=== PATIENT | male | born 1950 | race Two or more races ===

== ENCOUNTER 2018-08-11 12:32 | Emergency (ER) | payer MEDICARE ==
[~2018-08-11] VITALS: Ht 167.6 cm; Wt 127.0 kg
--- NOTE | 2018-08-11 12:40 | NUR ---
PT ROHINI FROM HOME FOR S/P GLF, PT AAOX4, PT ON MONITOR, VSS, PENDING MD HOU
[2018-08-11 12:59] LABS: BASOPHILS # (AUTO) 0.1 /CMM (0.0-0.2); BASOPHILS % (AUTO) 0.5 % (0.0-2.0); EOSINOPHILS % (AUTO) 1.4 % (0.0-6.0); HEMATOCRIT 30 % (39-51); HEMOGLOBIN 9.8 g/dL (13.5-17.5); LYMPHOCYTES # (AUTO) 0.7 /CMM (0.8-4.8); LYMPHOCYTES % (AUTO) 5.6 % (20.0-44.0); MEAN CORPUSCULAR HGB CONC 32 g/dl (31.0-36.0); MEAN CORPUSCULAR VOLUME 95 fL (80-96); MONOCYTES # (AUTO) 0.7 /CMM (0.1-1.30); MONOCYTES % (AUTO) 5.4 % (2.0-12.0); NEUTROPHILS # (AUTO) 11.2 /CMM (1.8-8.9); NEUTROPHILS % (AUTO) 87.1 % (43.0-81.0); PLATELET COUNT (AUTO) 206 /CMM (150-450); RED BLOOD CELL COUNT(AUTO) 3.19 MIL/uL (4.5-6.0); WHITE BLOOD COUNT (AUTO) 12.8 K/uL (4.3-11.0)
[2018-08-11 13:08] LABS: CALCIUM, SERUM 8.5 mg/dL (8.5-10.1); CREATININE 5.3 mg/dL (0.6-1.3); POTASSIUM 5.3 mmol/L (3.5-5.1)
--- NOTE | 2018-08-11 14:00 | NUR ---
Patient discharged to home in stable condition. Written and verbal after care instructions given. Patient verbalizes understanding of instruction. Arranged taxi to home. Pt left in stable condition.
[2018-08-11 14:04] VITALS: BP 119/60
[2018-08-11] MEDS ORDERED: FLUT16SP BNOSTRILS (15:51)
[2018-08-11] MEDS ORDERED: METO25TA20 PO (15:51)
[2018-08-11] MEDS ORDERED: SULF5DRO RIGHTEYE (15:51)
[2018-08-11] MEDS ORDERED: INSU100I14 SQ (15:51)
[2018-08-11] MEDS ORDERED: ALBU18HF2 IH (15:51)
[2018-08-11] MEDS ORDERED: ATOR80TA PO (15:51)
[2018-08-11] MEDS ORDERED: SEVE800T8 PO (15:51)
[2018-08-11] MEDS ORDERED: BENZ-38 PO (15:51)
[2018-08-11] MEDS ORDERED: INSU100V7 SQ (15:51)
[2018-08-11] MEDS ORDERED: DULA1.5P SQ (15:51)
[2018-08-11] MEDS ORDERED: HYDR-4384 PO (15:51)
[2018-08-11] MEDS ORDERED: BUME2TAB3 PO (15:51)
[2018-08-11] MEDS ORDERED: DOCU100C36 PO (15:51)
[2018-08-11] MEDS ORDERED: BUDE10.2 IH (15:51)
[2018-08-11] MEDS ORDERED: TAMS-12 PO (15:51)
[2018-08-11] MEDS ORDERED: ALLO300T2 PO (15:51)
[2018-08-11] MEDS ORDERED: ASPI-1169 PO (15:51)
[2018-08-11] MEDS ORDERED: CLOP75TA15 PO (15:51)
[2018-08-11] MEDS ORDERED: FOLI0.8T23 PO (15:51)
[2018-08-11] MEDS ORDERED: BLOO-697 MC (15:56)
== END 2018-08-11 14:08 | disposition home or self-care (01) ==
LOC: ER 12:33
DX: E11.22 Type 2 diabetes mellitus with diabetic chronic kidney disease (principal); I12.9 Hypertensive chronic kidney disease with stage 1 through stage 4 chronic kidney disease, or unspecified chronic kidney disease; N18.9 Chronic kidney disease, unspecified; Z95.2 Presence of prosthetic heart valve; Z99.2 Dependence on renal dialysis
CPT/HCPCS: 36415; 71045-TC; 80048-TC; 84484-TC; 85025-TC

== ENCOUNTER 2018-08-11 14:45 | Inpatient (IN) | payer MEDICARE ==
[~2018-08-11] VITALS: Ht 162.6 cm; Wt 129.3 kg
--- NOTE | 2018-08-11 15:25 | NUR ---
NURSING SUP CALLED. PT BED GOING TO 111-1 NURSE WILL BE PIPER.
[2018-08-11] MEDS ORDERED: SULF5DRO RIGHTEYE (15:51)
[2018-08-11] MEDS ORDERED: TAMS-12 PO (15:51)
[2018-08-11] MEDS ORDERED: INSU100V7 SQ (15:51)
[2018-08-11] MEDS ORDERED: ALBU18HF2 IH (15:51)
[2018-08-11] MEDS ORDERED: FOLI0.8T23 PO (15:51)
[2018-08-11] MEDS ORDERED: HYDR-4384 PO (15:51)
[2018-08-11] MEDS ORDERED: INSU100I14 SQ (15:51)
[2018-08-11] MEDS ORDERED: ASPI-1169 PO (15:51)
[2018-08-11] MEDS ORDERED: ALLO300T2 PO (15:51)
[2018-08-11] MEDS ORDERED: BUDE10.2 IH (15:51)
[2018-08-11] MEDS ORDERED: ATOR80TA PO (15:51)
[2018-08-11] MEDS ORDERED: METO25TA20 PO (15:51)
[2018-08-11] MEDS ORDERED: BUME2TAB3 PO (15:51)
[2018-08-11] MEDS ORDERED: DOCU100C36 PO (15:51)
[2018-08-11] MEDS ORDERED: FLUT16SP BNOSTRILS (15:51)
[2018-08-11] MEDS ORDERED: CLOP75TA15 PO (15:51)
[2018-08-11] MEDS ORDERED: DULA1.5P SQ (15:51)
[2018-08-11] MEDS ORDERED: SEVE800T8 PO (15:51)
[2018-08-11] MEDS ORDERED: BENZ-38 PO (15:51)
[2018-08-11] MEDS ORDERED: BLOO-697 MC (15:56)
--- NOTE | 2018-08-11 16:06 | NUR ---
CALLED DR. ANAYA. WILL RETURN CALL IN .
--- NOTE | 2018-08-11 16:30 | NUR ---
RECEIVED REPORT FROM DAMIR TAI FROM E.D. PATIENT TRANSFERED TO [facility], PATIENT WAS ADMITTED FOR DIZZYNESS, AND GENERALIZED WEAKNESS, VITAL SIGNS STABLE AND RECORDED. PATIENT HAS AN AV FISTULA IN LEFT ARM THAT IS POSITIVE FOR BRUIT/ THRILL PRESENT. RIGHT AC HAS A 20 ELVIA IV THAT IS PATENT AND PLACED IN E.D., NO S/S OF INFECTION NOTED. TOOK PICTURES OF PATIENTS WOUNDS, MULTIPLE WOUNDS ON BODY, WOUND CONSULT INITIATED, PULSES PRESENT IN ALL EXTREMITIES, NO EDEMA NOTED, MRSA SWAB WAS DONE IN THE E.D. LUNG SOUNDS PRESENT BUT DIMINISHED IN BOTH LUNGS, SKIN IS WARM PINK BUT HAS CUTS, MADE NOTES IN INITIAL PHYSICAL ASSESSMENT. ALL TREATMENTS AND PROCEDURES COMPLETED ORDERED AT THIS TIME. WILL CONTINUE TO MONITOR. ENDORSED PATIENT TO SELF RISING FLOUR MIXER NURSE.
--- NOTE | 2018-08-11 16:30 | NUR ---
REPORT GIVEN TO MAGDY TAI FOR CATHERINE; PT WILL BE TRANSPORTED TO 1ST FLOOR VIA [facility]
[2018-08-11] MEDS ORDERED: Z GUARD REMEDY 2 OZ OINT TP PRN (18:00)
[2018-08-11] MEDS ORDERED: MAG HYDROX/AL HYDROX/SIMETH 30 ML UDC PO PRN (18:00)
[2018-08-11] MEDS ORDERED: MAGNESIUM HYDROXIDE 30 ML UDC PO PRN (18:00)
[2018-08-11] MEDS ORDERED: INSULIN REGULAR, HUMAN 100 UNIT/ML 3 ML VIAL SQ PRN (18:00)
[2018-08-11] MEDS ORDERED: DEXTROSE 50%-WATER 50 ML DISP.SYRIN IV PRN (18:00)
[2018-08-11 18:14] VITALS: BP 113/44
[2018-08-11 20:00] VITALS: BP 116/52
--- NOTE | 2018-08-11 20:00 | NUR ---
Received report from day shift RN,Mango Venegas.patient A/OX4.Dx: Generalized weakness.VS stable.Respiration even and unlabored.On RA SPO2 95%.Tele reading SR.With multiple wounds.Kept clean and dry.DEVIKA AVF positive bruit and thrill.Care explained verbalized understanding.Safety measures implemented.Call light within easy reach.
[2018-08-11] MEDS: BLOOD SUGAR DIAGNOSTIC 1 EACH STRIP IN SCH (21:47)
[2018-08-11] MEDS ORDERED: DOCUSATE SODIUM 100 MG CAPSULE PO PRN (22:00)
[2018-08-11] MEDS ORDERED: ALBUTEROL FS 2.5 MG/3 ML VIAL.NEB NEB PRN (22:00)
--- NOTE | 2018-08-11 23:00 | NUR ---
Patient upset asking for his medications. I told him that no due medications at this time.All his medications are schedule for 0900 tomorrow except the regular insulin for his blood sugar coverage. He said he wants to see the doctor and pharmacist in his room now.Made him aware no pharmacist in person but i can page the MD production illustrator.
[2018-08-12] VITALS: BP 101/51
[2018-08-12] MEDS ORDERED: FUROSEMIDE 40 MG TABLET PO ONE (00:30)
--- NOTE | 2018-08-12 00:30 | NUR ---
Paged [email or web address] made aware of patient status and request.Orders received and carried out.
[2018-08-12] MEDS: ZOLPIDEM TARTRATE 5 MG TABLET PO PRN (00:44)
[2018-08-12 03:35] LABS: BASOPHILS # (AUTO) 0.1 /CMM (0.0-0.2); BASOPHILS % (AUTO) 0.8 % (0.0-2.0); EOSINOPHILS % (AUTO) 8.2 % (0.0-6.0); HEMATOCRIT 25 % (39-51); HEMOGLOBIN 8.4 g/dL (13.5-17.5); LYMPHOCYTES # (AUTO) 1.6 /CMM (0.8-4.8); LYMPHOCYTES % (AUTO) 13.1 % (20.0-44.0); MEAN CORPUSCULAR HGB CONC 33 g/dl (31.0-36.0); MEAN CORPUSCULAR VOLUME 94 fL (80-96); MONOCYTES # (AUTO) 1.4 /CMM (0.1-1.30); MONOCYTES % (AUTO) 11.8 % (2.0-12.0); NEUTROPHILS % (AUTO) 66.1 % (43.0-81.0); PLATELET COUNT (AUTO) 179 /CMM (150-450); WHITE BLOOD COUNT (AUTO) 12.1 K/uL (4.3-11.0)
[2018-08-12 05:00] VITALS: BP 158/74
--- NOTE | 2018-08-12 06:50 | NUR ---
Patient medicated with Ambien as requested.Effective patient sleeping during rounds. No distress noted.vs remains stable.SR. will endorse to day shift RN for continuity of care.
--- NOTE | 2018-08-12 07:05 | NUR ---
HORSE STUD WORKER NOTE PATIENT RECEIVED IN BED SLEEP BUT EASILY AROUSABLE. PATIENT A/O X3. PATIENT STATES PAIN 3/10. PATIENT IS UPRIGHT IN BED WITH PATIENT IV ACCESS SALINE LOCK. NO S/S OF INFILTRATION. IV SITE C,D,I. LEFT UPPER ARM FISTULA C,D,I. PATIENT DENIES SOB/. RN WILL CONTINUE TO MONITOR.
[2018-08-12 08:00] VITALS: BP 134/79
[2018-08-12] MEDS: SEVELAMER CARBONATE 800 MG TABLET PO SCH ×4 (08:00→17:04)
[2018-08-12] MEDS: BLOOD SUGAR DIAGNOSTIC 1 EACH STRIP IN SCH ×4 (08:21→21:25)
[2018-08-12] MEDS: CLOPIDOGREL BISULFATE 75 MG TABLET PO SCH (08:21)
[2018-08-12] MEDS: ASPIRIN 81 MG TAB.CHEW PO SCH (08:22)
[2018-08-12] MEDS: METOPROLOL TARTRATE 25 MG TABLET PO SCH ×2 (08:22→16:59)
[2018-08-12] MEDS ORDERED: Medication Not On Formulary EA (Budesonide/Formoterol Fumarate (Symbicort 160-4.5 Mcg In IH SCH (09:00)
--- NOTE | 2018-08-12 09:23 | NUR ---
MS TAI NOTES CALLED PHARMACY TO VERIFY PATIENT'S HUMALOG 44 UNITS Addendum: 08/12/18 at 1103 by NABEEL ALFREDO RN PAGEVeda ANAYA NP ABOUT PATIENT'S HUMALOG 44 UNITS AND STATES IT IS OKAY TO GIVE IT. PHARMACY ALSO NOTIFIED.
[2018-08-12] MEDS: VIT B CMPLX 3/FA/VIT C/BIOTIN 1 TAB TABLET PO SCH (09:32)
[2018-08-12] MEDS: BUMETANIDE (1 MG) 1 MG TABLET PO SCH ×2 (09:32→16:59)
[2018-08-12] MEDS: FLUTICASONE PROPIONATE 16 GM BOTTLE NS SCH ×2 (09:33→17:02)
[2018-08-12 09:34] LABS: ALBUMIN 3.1 g/dL (3.4-5.0); BILIRUBIN,TOTAL 0.3 mg/dL (0.2-1.0); CALCIUM, SERUM 8.2 mg/dL (8.5-10.1); CREATININE 5.9 mg/dL (0.6-1.3); MAGNESIUM 2.4 mg/dL (1.8-2.4); PHOSPHORUS 4.8 mg/dL (2.5-4.9); POTASSIUM 4.4 mmol/L (3.5-5.1); TOTAL PROTEIN, SERUM 6.4 g/dL (6.4-8.2)
[2018-08-12 09:39] LABS: THYROID STIMULATING HORMONE 2.973 uIU/mL (0.358-3.74)
[2018-08-12] MEDS: INSULIN LISPRO/ASPART 100 UNIT/ML CARTRIDGE SQ SCH ×4 (10:30→17:02)
[2018-08-12] MEDS: SULFACETAMIDE 10% OPHTH 15 ML BOTTLE RIGHTEYE SCH ×4 (10:41→21:25)
[2018-08-12] MEDS: ALLOPURINOL 100 MG TABLET PO SCH (11:00)
[2018-08-12 13:17] LABS: APPEARANCE,URINE SL CLOUDY (CLEAR); BILIRUBIN,URINE NEGATIVE (NEGATIVE); BLOOD, URINE 3+ Ery/uL (NEGATIVE); COLOR,URINE YELLOW (YELLOW); KETONES,URINE NEGATIVE (NEGATIVE); LEUKOCYTE ESTERASE ,URINE TRACE (NEGATIVE); NITRITE, URINE NEGATIVE (NEGATIVE); PROTEIN,URINE 1+ mg/dl (NEGATIVE); UGLUCOSE NEGATIVE (NEGATIVE); UROBILINOGEN,URINE 0.2 EU/dL (0.2)
[2018-08-12 13:21] LABS: BACTERIA,URINE Rare /HPF (None Seen); RBC,URINE TOO NUMEROUS TO COUN /HPF (0-2); SQUAMOUS EPITHELIAL CELL,UR Few /HPF (None Seen)
[2018-08-12] MEDS: ONDANSETRON HCL/PF 4 MG/2 ML VIAL IVP PRN (13:46)
[2018-08-12] MEDS: NYSTATIN TOP POWDER 15 GM BOTTLE TP SCH ×2 (14:36→17:00)
[2018-08-12] MEDS: NEOMY SULF/BACITRAC ZN/POLY 15 GM TUBE TP SCH (14:36)
[2018-08-12] MEDS: NYSTATIN/TRIAMCIN CREAM 15 GM TUBE TP SCH ×2 (14:36→21:32)
--- NOTE | 2018-08-12 15:48 | NUR ---
Met with patient, he is alert and oriented. [place] [id number] tel: [phone]. He is ambulatory and independent with adl's. States has a broken cane and might need to replace it. He receives hemodialysis at [facility] every [facility] .He will need assistance with transportation to go back home upon discharge. Addendum: 08/12/18 at 2357 by YAKOV WALDEN RN Amended: Links added.
[2018-08-12 16:00] VITALS: BP 135/56
[2018-08-12] MEDS: TAMSULOSIN 0.4 MG CAP.SR.24H PO SCH (17:04)
[2018-08-12 18:26] LABS: IRON, SERUM 92 ug/dl (50-175); TOTAL IRON BINDING CAPACITY 207 ug/dl (250-450)
[2018-08-12 18:42] LABS: FERRITIN 592 ng/mL (8-388)
--- NOTE | 2018-08-12 19:00 | NUR ---
MS RN CLOSING NOTE PATIENT RESTING IN BED. PATIENT A/O X3. PATIENT NOT COMPLAINING OF ANY PAIN. PATIENT IS UPRIGHT IN BED WITH PATIENT IV ACCESS SALINE LOCK. NO S/S OF INFILTRATION, IV SITE C,D,I. LEFT UPPER ARM FISTULA C,D,I. PATIENT DENIES SOB/. ALL MD ORDERS ATTENDED. SAFETY PRECAUTIONS IN PLACE THROUGH OUT SHIFT. ENDORSED TO BRIDGE OPENER NURSE FOR CATHERINE.
--- NOTE | 2018-08-12 19:05 | NUR ---
RN M/S NOTE PATIENT IS AOX3, SPEECH CLEAR, EVEN TONE AND PRESSURE, ABLE TO MAKE NEEDS KNOWN, RESTING IN BED, ON ROOM AIR, DENIES CARDIAC OR RESPIRATORY DISTRESS, RAC #20G PATENT FLUSHING WELL, SITE IS CLEAN AND DRY, LAV FISTULA AREA COVERED DRESSING CLEAN AND INTACT, DENIES PAIN, SKIN KEPT CLEAN AND DRY, SAFETY MAINTAINED AT ALL TIMES, BED IN LOW LOCKED POSITION, CALL LIGHT WITHIN REACH, WILL CONTINUE TO MONITOR FOR ANY CHANGES.
[2018-08-12 20:00] VITALS: BP 109/51
[2018-08-12] MEDS: ATORVASTATIN 40 MG TABLET PO SCH (21:25)
[2018-08-12] MEDS: INSULIN GLARGINE, 100 UNIT/ML CARTRIDGE SQ SCH (21:30)
[2018-08-13 04:00] VITALS: BP 140/65
[2018-08-13 06:56] LABS: BASOPHILS # (AUTO) 0.1 /CMM (0.0-0.2); BASOPHILS % (AUTO) 0.8 % (0.0-2.0); EOSINOPHILS % (AUTO) 11.2 % (0.0-6.0); HEMATOCRIT 23 % (39-51); HEMOGLOBIN 7.7 g/dL (13.5-17.5); LYMPHOCYTES # (AUTO) 1.6 /CMM (0.8-4.8); LYMPHOCYTES % (AUTO) 12.7 % (20.0-44.0); MEAN CORPUSCULAR HGB CONC 33 g/dl (31.0-36.0); MEAN CORPUSCULAR VOLUME 94 fL (80-96); MONOCYTES # (AUTO) 1.2 /CMM (0.1-1.30); MONOCYTES % (AUTO) 9.3 % (2.0-12.0); NEUTROPHILS # (AUTO) 8.3 /CMM (1.8-8.9); PLATELET COUNT (AUTO) 163 /CMM (150-450); RED BLOOD CELL COUNT(AUTO) 2.47 MIL/uL (4.5-6.0); WHITE BLOOD COUNT (AUTO) 12.5 K/uL (4.3-11.0)
[2018-08-13 07:27] LABS: CALCIUM, SERUM 7.8 mg/dL (8.5-10.1); CREATININE 5.9 mg/dL (0.6-1.3); MAGNESIUM 2.4 mg/dL (1.8-2.4); PHOSPHORUS 5.6 mg/dL (2.5-4.9); POTASSIUM 4.7 mmol/L (3.5-5.1)
--- NOTE | 2018-08-13 07:30 | NUR ---
RN NOTES RECEIVED PATIENT IN BED ON SITTING POSITION, AWAKE, A/O X4, ABLE TO MAKE NEEDS KNOWN, NOT ON ANY FORM OF DISTRESS, ON ROOM AIR, NO SHORTNESS OF BREATH AT THIS TIME, WITH COMPLAINTS OF PAIN ON THE RIGHT FOOT; PATIENT ABLE TO TOLERATE. IV ACCESS ON THE R AC G 20: IN PLACE AND INTACT, PATENT ON FLUSHING. PATIENT ENCOURAGE TO VERBALIZED FEELINGS AND CONCERNS. SAFETY ENSURED BY SRX2 RAISED, BED LOW AND LOCKED POSITION, CALL LIGHT PLACED WITHIN REACH. WILL CONTINUE TO MONITOR PATIENT Addendum: 08/15/18 at 0854 by EVELINE PAIGE RN 0900AM DUE METOPROLOL NOT GIVEN DUE TO PATIENT SCHEDULED FOR DIALYSIS TREATMENT
[2018-08-13] MEDS: INSULIN LISPRO/ASPART 100 UNIT/ML CARTRIDGE SQ SCH ×3 (07:57→17:34)
[2018-08-13 08:00] VITALS: BP_SYST 124; BP_SYST 136; BP_DIAS 68
[2018-08-13] MEDS: BLOOD SUGAR DIAGNOSTIC 1 EACH STRIP IN SCH ×4 (08:00→21:41)
--- NOTE | 2018-08-13 08:10 | NUR ---
WOUND CARE CONSULT WOUND CARE RECEIVED CONSULT FOR MULTIPLE WOUNDS. WOUND CARE WILL DEFER CONSULT AND ALL TREATMENT PLANS TO PLASTIC SURGICAL TEAM AND DPM DR SHIELDS THEY ARE ALL CURRENTLY FOLLOWING THIS PATIENT. PATIENT WITH LISA AT 17, ALL PRESSURE ULCER PREVENTION MEASURES ARE NOTED TO BE IN PLACE AT THIS TIME. WILL SEE PRN.
[2018-08-13] MEDS: SEVELAMER CARBONATE 800 MG TABLET PO SCH ×3 (08:20→17:30)
[2018-08-13] MEDS: FLUTICASONE/VILANTEROL 1 EACH BLST.W.DEV IH SCH (08:20)
[2018-08-13] MEDS: BUMETANIDE (1 MG) 1 MG TABLET PO SCH ×2 (08:21→17:31)
[2018-08-13] MEDS: ASPIRIN 81 MG TAB.CHEW PO SCH (08:21)
[2018-08-13] MEDS: CLOPIDOGREL BISULFATE 75 MG TABLET PO SCH (08:21)
[2018-08-13] MEDS: METOPROLOL TARTRATE 25 MG TABLET PO SCH ×2 (08:21→17:31)
[2018-08-13] MEDS: FLUTICASONE PROPIONATE 16 GM BOTTLE NS SCH ×2 (08:21→17:30)
[2018-08-13] MEDS: VIT B CMPLX 3/FA/VIT C/BIOTIN 1 TAB TABLET PO SCH (08:21)
[2018-08-13] MEDS: ALLOPURINOL 100 MG TABLET PO SCH (08:22)
[2018-08-13] MEDS: DAKINS QUARTER STRENGTH (0.125%) 480 ML BOTTLE TOP SCH (08:23)
[2018-08-13] MEDS: SULFACETAMIDE 10% OPHTH 15 ML BOTTLE RIGHTEYE SCH ×4 (08:23→21:41)
[2018-08-13] MEDS: NYSTATIN TOP POWDER 15 GM BOTTLE TP SCH ×2 (08:27→17:33)
[2018-08-13] MEDS: NYSTATIN/TRIAMCIN CREAM 15 GM TUBE TP SCH ×2 (08:28→21:42)
[2018-08-13] MEDS: NEOMY SULF/BACITRAC ZN/POLY 15 GM TUBE TP SCH (08:28)
[2018-08-13 12:00] VITALS: BP 124/68
--- NOTE | 2018-08-13 13:00 | NUR ---
RN NOTES PATIENT ASKED FOR AFTERNOON INSULIN DOSE, BUT ACTIVE ORDER LISPRO 44 UNITS BIDAC. PER PATIENT " WHAT DO THEY NOT UNDERSTAND ABOUT EVERY MEALS? IF YOU ARE NOT GONNA GIVE ME. I WILL PULL OUT MY OWN INSULIN IN BY BAG AND GIVE THE MEDICATION TO MY SELF". PAGED Amy ANAYA DNP AND MADE AWARE OF THE SITUATION AND ORDERED TO GIVE THE 44 UNITS BEFORE MEALS. ORDER NOTED AND CARRIED OUT.
[2018-08-13] MEDS: ACETAMINOPHEN 325 MG TABLET PO PRN (14:48)
[2018-08-13 16:00] VITALS: BP 132/56
[2018-08-13] MEDS: AMMONIUM LACTATE 227 GM BOTTLE TP SCH ×2 (16:05→17:32)
[2018-08-13] MEDS: TAMSULOSIN 0.4 MG CAP.SR.24H PO SCH (17:32)
--- NOTE | 2018-08-13 19:22 | NUR ---
RN NOTES ENDORSED PATIENT FOR CONTINUITY OF CARE. NOT ON ANY FORM OF DISTRESS. NO ACUTE CHANGES WITHIN THE SHIFT. ALL NURSING NEEDS ATTENDED AND MET. SAFETY MEASURES IN PLACE AT ALL TIMES. CALL LIGHT PLACED WITHIN REACH
--- NOTE | 2018-08-13 19:45 | NUR ---
ANTIONETTE/CORDUROY CUTTER OPERATOR RECEIVED REPORT FROM DAY NURSE. SEE FLOWSHEET FOR ASSESSMENT ALONG WITH ANY AND ALL SKIN ISSUES WHICH ARE ADDRESSES ALONG WITH EACH INTERVENTIONS. PT TURNS SELF AND REPOSITIONS SELF FOR COMFORT AND CARE. WILL CONTINUE TO MONITOR THIS PT. NO ACUTE DISTRESS SEEN AT THIS TIME.
[2018-08-13 20:00] VITALS: BP 116/52
--- NOTE | 2018-08-13 21:30 | NUR ---
ANTIONETTE/MIXING AND DISPENSING SUPERVISOR BLOOD SUGAR IS 106, HELD THE 0 LANTUS OF 44 UNITS DUE TO THE FACT THAT IT COULD DIP DUE TO THE INSULIN BEING LONG ACTING. WILL RECHECK SUGAR IN 3 HOURS.
[2018-08-13] MEDS: ATORVASTATIN 40 MG TABLET PO SCH (21:42)
[2018-08-13] MEDS: INSULIN GLARGINE, 100 UNIT/ML CARTRIDGE SQ SCH (21:53)
[2018-08-14] MEDS: INSULIN GLARGINE, 100 UNIT/ML CARTRIDGE SQ SCH ×2 (00:01→21:23)
[2018-08-14] MEDS: HYDROCODONE/APAP 5/325MG 1 EACH TABLET PO PRN (00:02)
--- NOTE | 2018-08-14 00:20 | NUR ---
ANTIONETTE/BUSINESS RULES ANALYST PT'S RECHECK OF BLOOD SUGAR IS 156, AT THIS TIME GAVE THE 44 UNITS OF LANTUS. WILL CONTINUE TO MONITOR PT'S SUGAR AGAIN CLOSELY.
--- NOTE | 2018-08-14 00:30 | NUR ---
ANTIONETTE/SILK WORKER PT COMPLAINED ABOUT LEG PAIN WHICH IS 7/. GAVE 1 TAB NORCO FOR THIS. WILL CONTINUE TO MONITOR PT'S PAIN. CALL LIGHT WITHIN REACH, NO ACUTE DISTRESS SEEN.
[2018-08-14] MEDS: ZOLPIDEM TARTRATE 5 MG TABLET PO PRN ×2 (01:03→21:26)
--- NOTE | 2018-08-14 01:30 | NUR ---
ANTIONETTE/BAKERY DELIVERER PT COMPLAINED ABOUT NOT BEING ABLE TO SLEEP, AMBIEN 5 MG GIVEN FOR THIS. WILL CONTINUE TO MONITOR THIS PT'. CALL LIGHT WITHIN REACH, NO ACUTE DISTRESS SEEN.
[2018-08-14 04:00] VITALS: BP 130/67
[2018-08-14 06:28] LABS: BASOPHILS # (AUTO) 0.1 /CMM (0.0-0.2); BASOPHILS % (AUTO) 0.8 % (0.0-2.0); EOSINOPHILS % (AUTO) 15.5 % (0.0-6.0); HEMATOCRIT 23 % (39-51); HEMOGLOBIN 7.5 g/dL (13.5-17.5); LYMPHOCYTES # (AUTO) 1.5 /CMM (0.8-4.8); LYMPHOCYTES % (AUTO) 12.9 % (20.0-44.0); MEAN CORPUSCULAR HGB CONC 33 g/dl (31.0-36.0); MEAN CORPUSCULAR VOLUME 94 fL (80-96); MONOCYTES % (AUTO) 8.3 % (2.0-12.0); NEUTROPHILS # (AUTO) 7.3 /CMM (1.8-8.9); NEUTROPHILS % (AUTO) 62.5 % (43.0-81.0); PLATELET COUNT (AUTO) 166 /CMM (150-450); WHITE BLOOD COUNT (AUTO) 11.7 K/uL (4.3-11.0)
[2018-08-14 07:04] LABS: CALCIUM, SERUM 7.9 mg/dL (8.5-10.1); CREATININE 5.4 mg/dL (0.6-1.3); MAGNESIUM 2.5 mg/dL (1.8-2.4); PHOSPHORUS 5.4 mg/dL (2.5-4.9); POTASSIUM 4.6 mmol/L (3.5-5.1)
--- NOTE | 2018-08-14 07:15 | NUR ---
RN OPENING NOTE RECEIVED PATIENT IN BED AWAKE AND ALERT X4. HAS GENERALIZED EDEMA DUE TO HD. LAST HD WAS YESTERDAY 1L OUT. USES THE URINAL WITH CLEAR AND YELLOW URINE. ON RENAL DIET. HAS A RIGHT AC #20, SL. AND LEFT UA FISTULA. HAS A CONSULT WITH DR CROW REGARDING THE LOWER EXT OCCLUSION. INSPECTOR SCREEN PRINTING CONSULT WAS ORDERED BY NOC SHIFT PER PATIENT'S REQUEST. BED LOCKED AND ON LOWEST POSITION. CALL LIGHT WITHIN REACH. WILL CONT TO MONITOR
[2018-08-14] MEDS: BLOOD SUGAR DIAGNOSTIC 1 EACH STRIP IN SCH ×4 (07:42→21:20)
[2018-08-14] MEDS: SEVELAMER CARBONATE 800 MG TABLET PO SCH ×3 (07:42→18:06)
[2018-08-14 08:00] VITALS: BP 136/68
--- NOTE | 2018-08-14 08:15 | NUR ---
RN NOTE CALLED PHARMACY TO ORDER INSULIN HUMALOG. BLOOD SUGAR WAS 125 MG/DL AT 0730. HUMALOG GIVEN AT 0800 44 UNITS. PATIENT ALERT AND ORIENTED X4. HE AGREES THAT HE TAKES HIS HUMALOG DAILY AND THAT THIS IS A LONG ACTING AND WILL NOT DROP HIS BS AT THIS TIME Addendum: 08/14/18 at 1320 by SABINO LOPEZ RN FAST ACTING
[2018-08-14] MEDS: FLUTICASONE PROPIONATE 16 GM BOTTLE NS SCH ×2 (08:21→17:15)
[2018-08-14] MEDS: SULFACETAMIDE 10% OPHTH 15 ML BOTTLE RIGHTEYE SCH ×4 (08:21→21:20)
[2018-08-14] MEDS: FLUTICASONE/VILANTEROL 1 EACH BLST.W.DEV IH SCH (08:21)
[2018-08-14] MEDS: VIT B CMPLX 3/FA/VIT C/BIOTIN 1 TAB TABLET PO SCH (08:23)
[2018-08-14] MEDS: CLOPIDOGREL BISULFATE 75 MG TABLET PO SCH (08:23)
[2018-08-14] MEDS: ALLOPURINOL 100 MG TABLET PO SCH (08:23)
[2018-08-14] MEDS: DOCUSATE SODIUM 100 MG CAPSULE PO SCH ×2 (08:23→17:16)
[2018-08-14] MEDS: ASPIRIN 81 MG TAB.CHEW PO SCH (08:23)
[2018-08-14] MEDS: BUMETANIDE (1 MG) 1 MG TABLET PO SCH ×2 (08:23→17:16)
[2018-08-14] MEDS: METOPROLOL TARTRATE 25 MG TABLET PO SCH (08:24)
[2018-08-14] MEDS: DAKINS QUARTER STRENGTH (0.125%) 480 ML BOTTLE TOP SCH (08:30)
[2018-08-14] MEDS: NEOMY SULF/BACITRAC ZN/POLY 15 GM TUBE TP SCH (08:31)
[2018-08-14] MEDS: NYSTATIN/TRIAMCIN CREAM 15 GM TUBE TP SCH ×2 (08:31→21:28)
[2018-08-14] MEDS: AMMONIUM LACTATE 227 GM BOTTLE TP SCH ×2 (08:31→17:13)
[2018-08-14] MEDS: NYSTATIN TOP POWDER 15 GM BOTTLE TP SCH ×2 (08:32→17:17)
[2018-08-14] MEDS: INSULIN LISPRO/ASPART 100 UNIT/ML CARTRIDGE SQ SCH ×2 (08:57→12:45)
[2018-08-14] MEDS: ACETAMINOPHEN 325 MG TABLET PO PRN (09:34)
--- NOTE | 2018-08-14 09:55 | NUR ---
RN NOTE PATIENT COMPLAINS OF LOWER BACK PAIN DUE TO BEING IN BED FOR A LONG TIME. ASKED HIM IF HE WANTS HELP TO BE REPOSITIONED. HE AGREED WITH ME AND CALLED BOMB TECHNICIAN TO REPOSITION PATIENT.
--- NOTE | 2018-08-14 10:13 | NUR ---
RN NOTE PATIENT COMPLAINING OF SOB, WEIGHT ON HIS CHEST, HEADACHE, COLD HANDS AND DRY MOUTH. PAGED THEO ANAYA THROUGH [employer]. WAITING FOR A CALL BACK. VS: 97.7, 74, 20, 97% ON 2L SC, 155/74. Addendum: 08/14/18 at 1320 by SABINO LOPEZ RN THEO ANAYA DNP, ORDERED CXR, TROPONIN AND EKG
--- NOTE | 2018-08-14 11:38 | NUR ---
RN NOTE EKG DONE, CXR DONE AND RESULT PENDING, TROPONIN PENDING
--- NOTE | 2018-08-14 13:35 | NUR ---
RN NOTE CTA OF RIGHT LOWER EXTREMITY WAS ORDERED. CONSENT SIGNED, PATIENT AWARE
[2018-08-14] MEDS ORDERED: IOHEXOL-350 100 ML VIAL IV ONE (13:59)
[2018-08-14] MEDS ORDERED: CT SWABBABLE VALVE TRANS SET 1 EA INFUS.SET MC ONE (14:00)
[2018-08-14] MEDS ORDERED: IV NS 0.9% 250 ML IV ONE (14:00)
--- NOTE | 2018-08-14 14:00 | NUR ---
RN NOTE PATIENT LEFT FOR CTA OF RIGHT LOWER EXTREMITY.
--- NOTE | 2018-08-14 14:30 | NUR ---
RN NOTE PATIENT CAME BACK FROM CTA, VS STABLE, NO COMPLAINS OF ANY ACUTE PAIN OR SOB AT THIS TIME
[2018-08-14 16:00] VITALS: BP 125/54
--- NOTE | 2018-08-14 16:10 | NUR ---
RN NOTE DIALYSIS NURSE IN PATIENT'S ROOM AT THIS TIME
[2018-08-14] MEDS: TAMSULOSIN 0.4 MG CAP.SR.24H PO SCH (17:16)
--- NOTE | 2018-08-14 17:31 | NUR ---
RN NOTE METOPROLOL NOT GIVEN AT THIS TIME BECAUSE PATIENT ON DIALYSIS
--- NOTE | 2018-08-14 17:47 | NUR ---
RN NOTE PATIENT'S BLOOD SUGAR WAS 72 MG/DL. APPLE JUICE GIVEN, ON DIALYSIS
--- NOTE | 2018-08-14 18:33 | NUR ---
RN CLOSING NOTE PATIENT STATES HE'LL EAT DINNER AFTER DIALYSIS. WILL GIVE RENVELA WITH FOOD AND INSULIN. WILL ENDORSE TO SHANIQUE BARBOSA RN PATIENT HAD CTA, RESULTS STILL PENDING. CXR, TROPONIN AND EKG ALL NEGATIVE. WOUND CARE DONE. DIALYSIS STILL ONGOING. TYLENOL GIVEN FOR HEADACHE. NO ACUTE PAIN, NO SOB. WILL ENDORSE TO SHANIQUE BARBOSA Addendum: 08/14/18 at 1900 by SABINO LOPEZ RN PATIENT STILL NOT EATING DINNER. WILL ENDORSE TO SHANIQUE BARBOSA TO GIVE INSULIN COVERAGE
--- NOTE | 2018-08-14 19:20 | NUR ---
RN OPEN NOTES RECEIVED PATIENT AWAKE IN BED EATING DINNER. A/O X4. NO SIGNS OF DISTRESS OR DISCOMFORT. BREATHING EVEN AND UNLABORED. IV ACCESS IN RAC, PATENT AND INTACT, NO SIGNS OF REDNESS OR INFILTRATION. HAS DEVIKA FISTULA INTACT, DRESSING C/D/I. PATIENT S/P HD WITH 3200 OUTPUT REPORTED. BED IN LOW LOCKED POSITION WITH SIDE RAILS X3. CALL LIGHT WITHIN REACH. WILL CONTINUE TO MONITOR.
[2018-08-14 20:00] VITALS: BP 115/49
[2018-08-14] MEDS: ATORVASTATIN 40 MG TABLET PO SCH (21:20)
[2018-08-15 04:00] VITALS: BP 155/71
--- NOTE | 2018-08-15 06:52 | NUR ---
RN CLOSING NOTES PATIENT AWAKE IN BED. A/O X4. NO SIGNS OF DISTRESS OR DISCOMFORT. BREATHING EVEN AND UNLABORED. IV ACCESS IN RAC, PATENT AND INTACT, NO SIGNS OF REDNESS OR INFILTRATION. HAS DEVIKA FISTULA INTACT, DRESSING C/D/I. ALL NEEDS MET. NO SIGNIFICANT CHANGES THROUGH THE NIGHT. BED IN LOW LOCKED POSITION WITH SIDE RAILS X3. CALL LIGHT WITHIN REACH. WILL ENDORSE TO AM SHIFT FOR CATHERINE.
--- NOTE | 2018-08-15 07:37 | NUR ---
MS RN NOTES PATIENT AWAKE IN BED. A/O X4. NO SIGNS OF DISTRESS OR DISCOMFORT. BREATHING EVEN AND UNLABORED. IV ACCESS IN RAC, PATENT AND INTACT, NO SIGNS OF REDNESS OR INFILTRATION. HAS DEVIKA FISTULA INTACT, DRESSING C/D/I. ALL NEEDS MET.BED IN LOW LOCKED POSITION WITH SIDE RAILS X3. CALL LIGHT WITHIN REACH. WILL CONT TO MONITOR CLOSELY
[2018-08-15 08:00] VITALS: BP 149/72
[2018-08-15] MEDS: INSULIN LISPRO/ASPART 100 UNIT/ML CARTRIDGE SQ SCH ×4 (08:15→18:02)
[2018-08-15] MEDS: ASPIRIN 81 MG TAB.CHEW PO SCH (08:19)
[2018-08-15] MEDS: VIT B CMPLX 3/FA/VIT C/BIOTIN 1 TAB TABLET PO SCH (08:19)
[2018-08-15] MEDS: CLOPIDOGREL BISULFATE 75 MG TABLET PO SCH (08:19)
[2018-08-15] MEDS: BUMETANIDE (1 MG) 1 MG TABLET PO SCH ×2 (08:19→16:44)
[2018-08-15] MEDS: DOCUSATE SODIUM 100 MG CAPSULE PO SCH ×2 (08:19→16:44)
[2018-08-15] MEDS: FLUTICASONE PROPIONATE 16 GM BOTTLE NS SCH ×2 (08:20→16:44)
[2018-08-15] MEDS: FLUTICASONE/VILANTEROL 1 EACH BLST.W.DEV IH SCH (08:20)
[2018-08-15] MEDS: SEVELAMER CARBONATE 800 MG TABLET PO SCH ×3 (08:20→17:20)
[2018-08-15] MEDS: ALLOPURINOL 100 MG TABLET PO SCH (08:20)
[2018-08-15] MEDS: METOPROLOL TARTRATE 25 MG TABLET PO SCH ×3 (08:21→16:44)
[2018-08-15] MEDS: NYSTATIN/TRIAMCIN CREAM 15 GM TUBE TP SCH ×2 (08:22→20:46)
[2018-08-15] MEDS: DAKINS QUARTER STRENGTH (0.125%) 480 ML BOTTLE TOP SCH (08:22)
[2018-08-15] MEDS: NEOMY SULF/BACITRAC ZN/POLY 15 GM TUBE TP SCH (08:22)
[2018-08-15] MEDS: NYSTATIN TOP POWDER 15 GM BOTTLE TP SCH ×2 (08:22→16:45)
[2018-08-15] MEDS: AMMONIUM LACTATE 227 GM BOTTLE TP SCH ×2 (08:23→16:45)
[2018-08-15] MEDS: SULFACETAMIDE 10% OPHTH 15 ML BOTTLE RIGHTEYE SCH ×4 (08:28→20:43)
[2018-08-15] MEDS: BLOOD SUGAR DIAGNOSTIC 1 EACH STRIP IN SCH ×4 (08:32→21:12)
--- NOTE | 2018-08-15 08:35 | NUR ---
MS TAI OTE ALL PO MED IM AM GIVEN ORDERED
--- NOTE | 2018-08-15 09:26 | NUR ---
MS RN NOTE SPOKE WITH DR DELGADO NOTIFIED ABOUT RT LOWER LEG CTA RESULT ,STATED THAT WILL CALL DR COMBS VASCULAR DOCTOR WILL F\U
[2018-08-15 09:35] LABS: BASOPHILS # (AUTO) 0.1 /CMM (0.0-0.2); BASOPHILS % (AUTO) 0.6 % (0.0-2.0); EOSINOPHILS % (AUTO) 11.6 % (0.0-6.0); HEMATOCRIT 24 % (39-51); HEMOGLOBIN 7.9 g/dL (13.5-17.5); LYMPHOCYTES % (AUTO) 7.7 % (20.0-44.0); MEAN CORPUSCULAR HGB CONC 33 g/dl (31.0-36.0); MEAN CORPUSCULAR VOLUME 94 fL (80-96); MONOCYTES % (AUTO) 7.8 % (2.0-12.0); NEUTROPHILS # (AUTO) 9.7 /CMM (1.8-8.9); NEUTROPHILS % (AUTO) 72.3 % (43.0-81.0); PLATELET COUNT (AUTO) 173 /CMM (150-450); RED BLOOD CELL COUNT(AUTO) 2.52 MIL/uL (4.5-6.0); WHITE BLOOD COUNT (AUTO) 13.5 K/uL (4.3-11.0)
[2018-08-15 09:47] LABS: CALCIUM, SERUM 8.3 mg/dL (8.5-10.1); CREATININE 4.9 mg/dL (0.6-1.3); MAGNESIUM 2.3 mg/dL (1.8-2.4); PHOSPHORUS 4.3 mg/dL (2.5-4.9)
--- NOTE | 2018-08-15 10:51 | NUR ---
MS RN NOTE ABLE TO AMBULATE WITH RN IN ROOM USING A WALKER AND ABLE TO SIT ON CHAIR , ALL NEEDS ATTENDED ,TX ON UPPER AND LOWER EXTREMITIES DONE ,WILL CONT TO CLOSELY
--- NOTE | 2018-08-15 12:12 | NUR ---
MS RN NOTE ASSISTED TO BACK TO BED , ALL NEEDS ATTENDED ,WILL CONT TO MONITOR
[2018-08-15] MEDS: BENZONATATE 100 MG CAPSULE PO PRN (12:32)
--- NOTE | 2018-08-15 12:34 | NUR ---
MS TAI NOTE C\O DEV BARNES ,WILL CONT TO MONITOR Addendum: 08/15/18 at 1321 by SALVATORE FAYE RN 1320 rounds made, resting comfortably, no sob noted at this time, not on distress
--- NOTE | 2018-08-15 13:00 | NUR ---
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
[2018-08-15 16:00] VITALS: BP 129/58
[2018-08-15] MEDS: ACETAMINOPHEN 325 MG TABLET PO PRN (16:51)
--- NOTE | 2018-08-15 17:00 | NUR ---
MS RN NOTE ALL NEEDS ATTENDED , C\O PAIN ON RT LEG 6\10 SCALE TYLENOL PO GIVEN ORDERED SPOKE WITH THEO ANAYA RN MANAGER MARKETING, NOTIFIED ABOUT CTA RT LOWER LEG AWARE THAT DR CROW VASCULAR SURGEON WILL SEE PATIENT TOMORROW
[2018-08-15] MEDS: TAMSULOSIN 0.4 MG CAP.SR.24H PO SCH (17:20)
--- NOTE | 2018-08-15 18:49 | NUR ---
MS RN NOTE HAVING DINNER , ABLE TO EAT SELF, NOT IN DISTRESS, ALL NEEDS ATTENDED
--- NOTE | 2018-08-15 19:40 | NUR ---
RN MS OPENING NOTES RECEIVED PATIENT IN BED AWAKE, ALERT AND ORIENTED X4, VERBALLY RESPONSIVE, ABLE TO MAKE NEEDS KNOWN. BREATHING EVEN AND UNLABORED. NO SOB NOTED. TOLERATING ROOM AIR. NO COMPLAINTS OF PAIN OR DISCOMFORT. NO FACIAL GRIMACING. IV ON RAC INTACT AND PATENT. LEFT UPPER ARM FISTULA INTACT. SKIN DRY AND WARM TO TOUCH. AFEBRILE. ALL OTHER NEEDS METS. SAFETY MEASURES IN PLACE. CALL LIGHT WITHIN REACH. WILL CONTINUE TO MONITOR.
[2018-08-15 20:00] VITALS: BP 145/53
[2018-08-15] MEDS: ATORVASTATIN 40 MG TABLET PO SCH (21:13)
[2018-08-15] MEDS: INSULIN GLARGINE, 100 UNIT/ML CARTRIDGE SQ SCH (21:13)
[2018-08-16] MEDS: ACETAMINOPHEN 325 MG TABLET PO PRN (02:14)
[2018-08-16] MEDS: BENZONATATE 100 MG CAPSULE PO PRN ×2 (02:19→08:26)
[2018-08-16 04:00] VITALS: BP 137/60
[2018-08-16] MEDS: BLOOD SUGAR DIAGNOSTIC 1 EACH STRIP IN SCH ×4 (06:33→21:56)
--- NOTE | 2018-08-16 06:45 | NUR ---
RN MS CLOSING NOTES PATIENT RESTING IN BED. NO ACUTE CHANGES THROUGHOUT SHIFT. BREATHING EVEN AND UNLABORED. NO SOB NOTED. TOLERATING ROOM AIR. NO COMPLAINTS OF PAIN OR DISCOMFORT. NO FACIAL GRIMACING. IV ON RAC INTACT AND PATENT. LEFT UPPER ARM FISTULA INTACT. ALL DRESSINGS WERE CHANGED - CURRENTLY DRY, CLEAN AND INTACT. ALL OTHER NEEDS METS. SAFETY MEASURES IN PLACE. CALL LIGHT WITHIN REACH. WILL ENDORSE TO ONCOMING NURSE FOR CATHERINE. .
--- NOTE | 2018-08-16 07:00 | NUR ---
RN AM SHIFT NOTE PATIENT IN BED ALERT AND ORIENTED X4. SIDE RAILS UP PATIENT CALL LIGHT WITHIN REACH. NO COMPLAIINTS OF PAIN AT THIS TIME. REANL DIET, IV PATENT AND INTACT. CONTINUE TO MONITOR PATIENT.
[2018-08-16 07:42] LABS: BASOPHILS # (AUTO) 0.1 /CMM (0.0-0.2); BASOPHILS % (AUTO) 0.4 % (0.0-2.0); EOSINOPHILS % (AUTO) 9.3 % (0.0-6.0); HEMATOCRIT 25 % (39-51); HEMOGLOBIN 8.1 g/dL (13.5-17.5); LYMPHOCYTES # (AUTO) 0.9 /CMM (0.8-4.8); LYMPHOCYTES % (AUTO) 6.2 % (20.0-44.0); MEAN CORPUSCULAR HGB CONC 33 g/dl (31.0-36.0); MEAN CORPUSCULAR VOLUME 94 fL (80-96); MONOCYTES # (AUTO) 1.5 /CMM (0.1-1.30); NEUTROPHILS # (AUTO) 11.3 /CMM (1.8-8.9); NEUTROPHILS % (AUTO) 74.1 % (43.0-81.0); PLATELET COUNT (AUTO) 186 /CMM (150-450); RED BLOOD CELL COUNT(AUTO) 2.62 MIL/uL (4.5-6.0); WHITE BLOOD COUNT (AUTO) 15.3 K/uL (4.3-11.0)
[2018-08-16 08:00] VITALS: BP 168/72
[2018-08-16 08:05] LABS: CALCIUM, SERUM 8.6 mg/dL (8.5-10.1); CREATININE 6.4 mg/dL (0.6-1.3); MAGNESIUM 2.5 mg/dL (1.8-2.4); PHOSPHORUS 5.2 mg/dL (2.5-4.9); POTASSIUM 5.2 mmol/L (3.5-5.1)
[2018-08-16] MEDS: SEVELAMER CARBONATE 800 MG TABLET PO SCH ×3 (08:08→17:17)
[2018-08-16] MEDS: VIT B CMPLX 3/FA/VIT C/BIOTIN 1 TAB TABLET PO SCH (08:08)
[2018-08-16] MEDS: BUMETANIDE (1 MG) 1 MG TABLET PO SCH ×2 (08:08→17:17)
[2018-08-16] MEDS: ASPIRIN 81 MG TAB.CHEW PO SCH (08:08)
[2018-08-16] MEDS: ALLOPURINOL 100 MG TABLET PO SCH (08:09)
[2018-08-16] MEDS: CLOPIDOGREL BISULFATE 75 MG TABLET PO SCH (08:09)
[2018-08-16] MEDS: METOPROLOL TARTRATE 25 MG TABLET PO SCH ×2 (08:09→17:17)
[2018-08-16] MEDS: FLUTICASONE PROPIONATE 16 GM BOTTLE NS SCH ×2 (08:10→17:18)
[2018-08-16] MEDS: FLUTICASONE/VILANTEROL 1 EACH BLST.W.DEV IH SCH (08:10)
[2018-08-16] MEDS: DAKINS QUARTER STRENGTH (0.125%) 480 ML BOTTLE TOP SCH (08:10)
[2018-08-16] MEDS: DOCUSATE SODIUM 100 MG CAPSULE PO SCH ×2 (08:10→17:18)
[2018-08-16] MEDS: SULFACETAMIDE 10% OPHTH 15 ML BOTTLE RIGHTEYE SCH ×4 (08:10→21:54)
[2018-08-16] MEDS: AMMONIUM LACTATE 227 GM BOTTLE TP SCH ×2 (08:11→17:09)
[2018-08-16] MEDS: NYSTATIN TOP POWDER 15 GM BOTTLE TP SCH ×2 (08:11→17:09)
[2018-08-16] MEDS: NEOMY SULF/BACITRAC ZN/POLY 15 GM TUBE TP SCH (08:11)
[2018-08-16] MEDS: NYSTATIN/TRIAMCIN CREAM 15 GM TUBE TP SCH ×2 (08:11→21:54)
[2018-08-16] MEDS: INSULIN LISPRO/ASPART 100 UNIT/ML CARTRIDGE SQ SCH ×3 (08:22→18:04)
[2018-08-16 12:00] VITALS: BP 151/75
[2018-08-16] MEDS ORDERED: MORPHINE SULFATE INJ 2 MG/ML DISP.SYRIN IV PRN (14:30)
[2018-08-16 16:00] VITALS: BP 133/69
[2018-08-16] MEDS: TAMSULOSIN 0.4 MG CAP.SR.24H PO SCH (17:17)
--- NOTE | 2018-08-16 18:49 | NUR ---
RN CLOSING NOTE PATIENT ALERT AND ORIENTED X4. SAFETY MEASURES IN PLACE. IV PATENT AND INTACT. PATIENT VITALS WNL, VERBALIZED NO PAIN. EATING WELL. VASCULAR SURGEON SAW PATIENT THIS EVENING, FOLLOW UP WITH OUTSIDE SURGEON WHO DID HIS STENT PLACEMENT IN RT LEG. NO ORDER FOR D/C AT THIS TIME. WOUND CARE DONE, PATIENT TOLERATED WELL. CONTINUE TO MONITOR PATIETN.
--- NOTE | 2018-08-16 19:40 | NUR ---
RN OPENING NOTES RECEIVED PATIENT IN BED AWAKE, ALERT AND ORIENTED X4, VERBALLY RESPONSIVE, ABLE TO MAKE NEEDS KNOWN. BREATHING EVEN AND UNLABORED ON 2L O2 VIA NC. NO SOB NOTED. IV ON RAC INTACT AND PATENT. LEFT UPPER ARM FISTULA INTACT. SKIN DRY AND WARM TO TOUCH. AFEBRILE. ALL NEEDS MET. SAFETY MEASURES IN PLACE. CALL LIGHT WITHIN REACH. WILL CONTINUE TO MONITOR.
[2018-08-16 20:00] VITALS: BP 113/59
[2018-08-16] MEDS: HYDROCODONE/APAP 5/325MG 1 EACH TABLET PO PRN (21:52)
[2018-08-16] MEDS: ZOLPIDEM TARTRATE 5 MG TABLET PO SCH (21:53)
[2018-08-16] MEDS: ATORVASTATIN 40 MG TABLET PO SCH (21:53)
[2018-08-16] MEDS: INSULIN GLARGINE, 100 UNIT/ML CARTRIDGE SQ SCH (22:01)
[2018-08-17 04:00] VITALS: BP 134/69
--- NOTE | 2018-08-17 07:15 | NUR ---
MS RN OPENING NOTES RECEIVED PATIENT IN BED AWAKE, ALERT AND ORIENTED X4, VERBALLY RESPONSIVE, ABLE TO MAKE NEEDS KNOWN. BREATHING EVEN AND UNLABORED ON 2L O2 VIA NC, TOLERATING WELL. NO SOB NOTED. IV ON RAC INTACT AND PATENT. LEFT UPPER ARM FISTULA INTACT. SKIN DRY AND WARM TO TOUCH. AFEBRILE. SAFETY MEASURES IN PLACE. CALL LIGHT WITHIN REACH. WILL CONTINUE TO MONITOR.
[2018-08-17 07:36] LABS: BASOPHILS # (AUTO) 0.1 /CMM (0.0-0.2); BASOPHILS % (AUTO) 0.7 % (0.0-2.0); EOSINOPHILS % (AUTO) 8.4 % (0.0-6.0); HEMATOCRIT 24 % (39-51); HEMOGLOBIN 8.1 g/dL (13.5-17.5); LYMPHOCYTES % (AUTO) 6.6 % (20.0-44.0); MEAN CORPUSCULAR HGB CONC 33 g/dl (31.0-36.0); MEAN CORPUSCULAR VOLUME 95 fL (80-96); MONOCYTES # (AUTO) 1.6 /CMM (0.1-1.30); MONOCYTES % (AUTO) 11.2 % (2.0-12.0); NEUTROPHILS # (AUTO) 10.6 /CMM (1.8-8.9); NEUTROPHILS % (AUTO) 73.1 % (43.0-81.0); PLATELET COUNT (AUTO) 202 /CMM (150-450); RED BLOOD CELL COUNT(AUTO) 2.56 MIL/uL (4.5-6.0); WHITE BLOOD COUNT (AUTO) 14.5 K/uL (4.3-11.0)
[2018-08-17] MEDS: BLOOD SUGAR DIAGNOSTIC 1 EACH STRIP IN SCH ×4 (07:45→21:26)
[2018-08-17 07:47] LABS: CALCIUM, SERUM 8.7 mg/dL (8.5-10.1); CREATININE 7.1 mg/dL (0.6-1.3); MAGNESIUM 2.8 mg/dL (1.8-2.4); PHOSPHORUS 6.3 mg/dL (2.5-4.9); POTASSIUM 5.2 mmol/L (3.5-5.1)
--- NOTE | 2018-08-17 07:50 | NUR ---
MS RN NOTES PATIENT BUN 90 PER LAB. MD MADE AWARE. NO NEW ORDERS NOTED. WILL CONT TO MONITOR PT CLOSELY.
[2018-08-17 08:00] VITALS: BP 156/70
[2018-08-17] MEDS: VIT B CMPLX 3/FA/VIT C/BIOTIN 1 TAB TABLET PO SCH (08:09)
[2018-08-17] MEDS: ALLOPURINOL 100 MG TABLET PO SCH (08:09)
[2018-08-17] MEDS: ASPIRIN 81 MG TAB.CHEW PO SCH (08:10)
[2018-08-17] MEDS: SEVELAMER CARBONATE 800 MG TABLET PO SCH ×3 (08:10→18:10)
[2018-08-17] MEDS: CLOPIDOGREL BISULFATE 75 MG TABLET PO SCH (08:10)
[2018-08-17] MEDS: METOPROLOL TARTRATE 25 MG TABLET PO SCH ×4 (08:10→18:06)
[2018-08-17] MEDS: BUMETANIDE (1 MG) 1 MG TABLET PO SCH ×2 (08:10→18:05)
[2018-08-17] MEDS: FLUTICASONE/VILANTEROL 1 EACH BLST.W.DEV IH SCH (08:11)
[2018-08-17] MEDS: FLUTICASONE PROPIONATE 16 GM BOTTLE NS SCH ×2 (08:11→18:07)
[2018-08-17] MEDS: INSULIN LISPRO/ASPART 100 UNIT/ML CARTRIDGE SQ SCH ×3 (08:13→18:10)
[2018-08-17] MEDS: DOCUSATE SODIUM 100 MG CAPSULE PO SCH ×2 (08:14→18:05)
[2018-08-17] MEDS: SULFACETAMIDE 10% OPHTH 15 ML BOTTLE RIGHTEYE SCH ×4 (08:16→21:28)
--- NOTE | 2018-08-17 09:20 | NUR ---
MS RN NOTES ADMINISTERED METOPROLOL 25MG PO AT 0810. MD ORDERED NEW DOSE OF METOPROLOL 50MG PO AT 0900. CLARIFIED WITH MD, ORDER TO HOLD DOSE FOR NOW AND ADMINISTER METOPROLOL 50MG PO FOR NEXT SCHEDULED TIME.
[2018-08-17] MEDS: BENZONATATE 100 MG CAPSULE PO PRN (09:33)
--- NOTE | 2018-08-17 09:50 | NUR ---
MS RN NOTES HEMODIALYSIS AT BEDSIDE. WILL HOLD MEDICATIONS FOR NOW.
[2018-08-17] MEDS: NYSTATIN TOP POWDER 15 GM BOTTLE TP SCH ×2 (09:56→17:00)
[2018-08-17] MEDS: AMMONIUM LACTATE 227 GM BOTTLE TP SCH ×2 (09:56→17:00)
[2018-08-17] MEDS: NEOMY SULF/BACITRAC ZN/POLY 15 GM TUBE TP SCH (09:56)
[2018-08-17] MEDS: DAKINS QUARTER STRENGTH (0.125%) 480 ML BOTTLE TOP SCH (09:56)
[2018-08-17] MEDS: NYSTATIN/TRIAMCIN CREAM 15 GM TUBE TP SCH ×2 (09:56→21:31)
[2018-08-17 16:00] VITALS: BP 130/56
[2018-08-17] MEDS: ACETAMINOPHEN 325 MG TABLET PO PRN (18:06)
[2018-08-17] MEDS: TAMSULOSIN 0.4 MG CAP.SR.24H PO SCH (18:07)
[2018-08-17] MEDS: ONDANSETRON HCL/PF 4 MG/2 ML VIAL IVP PRN (18:09)
--- NOTE | 2018-08-17 19:05 | NUR ---
MS RN CLOSING NOTES PATIENT IN BED AWAKE, ALERT AND ORIENTED X4, VERBALLY RESPONSIVE, ABLE TO MAKE NEEDS KNOWN. BREATHING EVEN AND UNLABORED ON RA, TOLERATING WELL. NO SOB NOTED. IV ON RAC INTACT AND PATENT. LEFT UPPER ARM FISTULA INTACT. SKIN DRY AND WARM TO TOUCH. AFEBRILE. SAFETY MEASURES IN PLACE THROUGHOUT SHIFT. CALL LIGHT WITHIN REACH. ALL MD ORDERS AND PATIENT NEEDS ATTENDED. ENDORSED TO CONSULTING SALES MANAGER NURSE FOR CATHERINE.
--- NOTE | 2018-08-17 19:49 | NUR ---
MS RN NOTE PT IN BED AWAKE. A/O X 4, NO SOB NOTED. C/O PAIN IN RT THIGH 07/28, PT RECEIVED TYLENOL 650 MG EARLIER BY DAY SHIFT NURSE. ALSO PT LOW GRADE FEVER SUBSIDED. SKIN WARM AND DRY TO TOUCH. PT ON 2L O2 WITH N/C. RAC #20 G H/L INTACT AND PATENT. DEVIKA FISTULA INTACT WITH DRESSING ON. NO S/S OF HYPO OR HYPERGLYCEMIA NOTED. SIDE RAILS UP X 2 AND CALL LIGHT WITHIN REACH. VSS. CONTINUE TO MONITOR HIM.
[2018-08-17 20:00] VITALS: BP 115/62
[2018-08-17] MEDS: ATORVASTATIN 40 MG TABLET PO SCH (21:28)
[2018-08-17] MEDS: ZOLPIDEM TARTRATE 5 MG TABLET PO SCH (21:28)
[2018-08-17] MEDS: INSULIN GLARGINE, 100 UNIT/ML CARTRIDGE SQ SCH (21:29)
[2018-08-17] MEDS: HYDROCODONE/APAP 5/325MG 1 EACH TABLET PO PRN (21:30)
--- NOTE | 2018-08-17 21:37 | NUR ---
MS RN NOTE BS 140 LANTUS 44 UNITS GIVEN SQ. PT REFUSED ANY OTHER COVERAGE. HS SNACKS GIVEN.
[2018-08-18 04:00] VITALS: BP 119/54
--- NOTE | 2018-08-18 06:22 | NUR ---
MS RN NOTE PT IN BED ASLEEP, AROUSABLE. NO DISTRESS OR DISCOMFORT NOTED. DENIES PAIN AT THIS TIME. ALL NEEDS ATTENDED. VSS. NO FEVER. SIDE RAILS UP X 2 AND CALL LIGHT WITHIN REACH. WILL ENDORSE TO DAY SHIFT NURSE FOR CONTINUE TO CARE.
--- NOTE | 2018-08-18 07:14 | NUR ---
RN OPENING NOTES RECEIVED PATIENT IN BED AWAKE AND ALERT, WATCHING TV NEWS. STATED NO PAIN OR ANY SOB AT THIS TIME. WAITING FOR BREAKFAST. A&Ox4. BRP PER NOC SHIFT, RENAL DIET. HAS SKIN ISSUES, WILL SEE WOUND CARE. DC PLANNING, FOOT AND ANKLE SURGEON AWARE. AMBULATORY WITH ASSIST PER NOC SHIFT RN. BED LOCKED AND IN LOWEST POSITION. CALL LIGHT WITHIN REACH. WILL CONT TO MONITOR CLOSELY
[2018-08-18 07:16] LABS: BASOPHILS # (AUTO) 0.1 /CMM (0.0-0.2); BASOPHILS % (AUTO) 0.8 % (0.0-2.0); EOSINOPHILS % (AUTO) 9.6 % (0.0-6.0); HEMATOCRIT 23 % (39-51); HEMOGLOBIN 7.5 g/dL (13.5-17.5); LYMPHOCYTES # (AUTO) 0.8 /CMM (0.8-4.8); LYMPHOCYTES % (AUTO) 6.2 % (20.0-44.0); MEAN CORPUSCULAR HGB CONC 33 g/dl (31.0-36.0); MEAN CORPUSCULAR VOLUME 95 fL (80-96); MONOCYTES # (AUTO) 1.4 /CMM (0.1-1.30); MONOCYTES % (AUTO) 10.8 % (2.0-12.0); NEUTROPHILS # (AUTO) 9.7 /CMM (1.8-8.9); NEUTROPHILS % (AUTO) 72.6 % (43.0-81.0); PLATELET COUNT (AUTO) 211 /CMM (150-450); WHITE BLOOD COUNT (AUTO) 13.3 K/uL (4.3-11.0)
[2018-08-18 08:00] VITALS: BP 126/75
[2018-08-18 08:10] LABS: CALCIUM, SERUM 8.6 mg/dL (8.5-10.1); CREATININE 6.2 mg/dL (0.6-1.3); MAGNESIUM 2.6 mg/dL (1.8-2.4); PHOSPHORUS 5.9 mg/dL (2.5-4.9); POTASSIUM 4.9 mmol/L (3.5-5.1)
[2018-08-18] MEDS: INSULIN LISPRO/ASPART 100 UNIT/ML CARTRIDGE SQ SCH ×3 (08:37→17:51)
[2018-08-18] MEDS: FLUTICASONE PROPIONATE 16 GM BOTTLE NS SCH ×2 (08:38→16:23)
[2018-08-18] MEDS: FLUTICASONE/VILANTEROL 1 EACH BLST.W.DEV IH SCH (08:38)
[2018-08-18] MEDS: DOCUSATE SODIUM 100 MG CAPSULE PO SCH ×2 (08:39→16:24)
[2018-08-18] MEDS: SEVELAMER CARBONATE 800 MG TABLET PO SCH ×3 (08:39→17:01)
[2018-08-18] MEDS: ASPIRIN 81 MG TAB.CHEW PO SCH (08:39)
[2018-08-18] MEDS: VIT B CMPLX 3/FA/VIT C/BIOTIN 1 TAB TABLET PO SCH (08:40)
[2018-08-18] MEDS: BUMETANIDE (1 MG) 1 MG TABLET PO SCH ×2 (08:40→16:23)
[2018-08-18] MEDS: METOPROLOL TARTRATE 25 MG TABLET PO SCH ×2 (08:40→16:24)
[2018-08-18] MEDS: ALLOPURINOL 100 MG TABLET PO SCH (08:41)
[2018-08-18] MEDS: CLOPIDOGREL BISULFATE 75 MG TABLET PO SCH (08:41)
[2018-08-18] MEDS: NEOMY SULF/BACITRAC ZN/POLY 15 GM TUBE TP SCH (08:42)
[2018-08-18] MEDS: NYSTATIN/TRIAMCIN CREAM 15 GM TUBE TP SCH ×2 (08:42→21:39)
[2018-08-18] MEDS: SULFACETAMIDE 10% OPHTH 15 ML BOTTLE RIGHTEYE SCH ×4 (08:42→21:35)
[2018-08-18] MEDS: DAKINS QUARTER STRENGTH (0.125%) 480 ML BOTTLE TOP SCH (08:43)
[2018-08-18] MEDS: AMMONIUM LACTATE 227 GM BOTTLE TP SCH ×2 (08:43→16:26)
[2018-08-18] MEDS: NYSTATIN TOP POWDER 15 GM BOTTLE TP SCH ×2 (08:43→16:27)
[2018-08-18 09:00] VITALS: BP 126/75
[2018-08-18] MEDS: BLOOD SUGAR DIAGNOSTIC 1 EACH STRIP IN SCH ×4 (09:16→21:35)
--- NOTE | 2018-08-18 11:04 | NUR ---
RN NOTE PATIENT COMPLAINED OF DRY COUGH FOR WEEKS NOW. MD MADE AWARE. THERE WAS A STAT ORDER FOR URINE SAMPLE. PATIENT MADE AWARE.
[2018-08-18] MEDS ORDERED: BENZONATATE 100 MG CAPSULE PO PRN (14:00)
--- NOTE | 2018-08-18 15:39 | NUR ---
RN NOTE URINE SAMPLE COLLECTED. CALLED LAB TO AUTO BENCH MECHANIC
[2018-08-18 16:00] VITALS: BP 130/78
[2018-08-18] MEDS: BENZONATATE 100 MG CAPSULE PO PRN (16:32)
[2018-08-18] MEDS: TAMSULOSIN 0.4 MG CAP.SR.24H PO SCH (17:01)
[2018-08-18 17:32] LABS: APPEARANCE,URINE CLEAR (CLEAR); BILIRUBIN,URINE NEGATIVE (NEGATIVE); BLOOD, URINE TRACE-INTA Ery/uL (NEGATIVE); COLOR,URINE YELLOW (YELLOW); KETONES,URINE NEGATIVE (NEGATIVE); LEUKOCYTE ESTERASE ,URINE NEGATIVE (NEGATIVE); NITRITE, URINE NEGATIVE (NEGATIVE); PH,URINE 5.5 (5.0-8.0); PROTEIN,URINE 1+ mg/dl (NEGATIVE); UGLUCOSE NEGATIVE (NEGATIVE); UROBILINOGEN,URINE 0.2 EU/dL (0.2)
[2018-08-18 17:55] LABS: BACTERIA,URINE Few /HPF (None Seen); SQUAMOUS EPITHELIAL CELL,UR Few /HPF (None Seen)
--- NOTE | 2018-08-18 18:43 | NUR ---
RN CLOSING NOTE PATIENT STABLE THROUGHOUT THE SHIFT. NO PAIN NOR SOB NOTED. ALL MEDS TAKEN. VS STABLE. WILL ENDORSE TO NOC SHIFT RN.
--- NOTE | 2018-08-18 19:52 | NUR ---
RN OPENING NOTES RECEIVED REPORT FROM SHARI TAI. PATIENT A/A/O X3, ABLE TO MAKE NEEDS KNOWN. BREATHING EVEN & UNLABORED, TOLERATING ROOM AIR. DENIES ANY SOB OR DIFFICULTY BREATHING. RADIAL PULSES PRESENT. RIGHT AC IV #20 INTACT & PATENT W/ DRESSING CDI, SALINE LOCKED. LEFT UPPER ARM AV SHUNT W/ NO COMPLICATIONS NOTED. DENIES ANY PAIN OR DISCOMFORT @ THIS TIME. ABLE TO USE BSC W/ ASSIST. SAFETY MEASURES IN PLACE W/ SIDE RAILS UP & BED ALARM ON. INSTRUCTED TO USE CALL LIGHT FOR ASSISTANCE. WILL CONTINUE TO MONITOR.
[2018-08-18 20:00] VITALS: BP 124/62
[2018-08-18 20:15] VITALS: BP 124/62
[2018-08-18] MEDS: ATORVASTATIN 40 MG TABLET PO SCH (21:35)
[2018-08-18] MEDS: ZOLPIDEM TARTRATE 5 MG TABLET PO SCH (21:35)
[2018-08-18] MEDS: INSULIN GLARGINE, 100 UNIT/ML CARTRIDGE SQ SCH (21:36)
[2018-08-19 03:55] VITALS: BP 126/63
[2018-08-19 04:00] VITALS: BP 126/63
[2018-08-19 06:50] LABS: BASOPHILS # (AUTO) 0.1 /CMM (0.0-0.2); EOSINOPHILS % (AUTO) 9.3 % (0.0-6.0); HEMATOCRIT 23 % (39-51); HEMOGLOBIN 7.6 g/dL (13.5-17.5); LYMPHOCYTES # (AUTO) 1.1 /CMM (0.8-4.8); LYMPHOCYTES % (AUTO) 7.7 % (20.0-44.0); MEAN CORPUSCULAR HGB CONC 33 g/dl (31.0-36.0); MEAN CORPUSCULAR VOLUME 94 fL (80-96); MONOCYTES # (AUTO) 1.4 /CMM (0.1-1.30); MONOCYTES % (AUTO) 10.1 % (2.0-12.0); NEUTROPHILS # (AUTO) 10.2 /CMM (1.8-8.9); NEUTROPHILS % (AUTO) 71.9 % (43.0-81.0); PLATELET COUNT (AUTO) 234 /CMM (150-450); RED BLOOD CELL COUNT(AUTO) 2.41 MIL/uL (4.5-6.0); WHITE BLOOD COUNT (AUTO) 14.2 K/uL (4.3-11.0)
--- NOTE | 2018-08-19 07:00 | NUR ---
RN AM SHIFT NOTE PATIENT IN BED, ALERT AND ORINENTED. SAFETY MEASURES IN PLACE. IV PATENT AND INTACT. CALL LIGHT WITHIN REACH .
--- NOTE | 2018-08-19 07:00 | NUR ---
RN AM SHIFT NOTE PATIENT IN BED, UNRESPONSIVE, OPENS EYES. IV PATENT AND INTACT. ZAC IS NOT EATING, ATTEMPTS MADE FOR TWO DAYS. BED IN LOW POSITION, SAFETY MEASURS IN PLACE. Addendum: 08/19/18 at 1026 by CLIFF SHEEHAN RN WRONG PATIENT NOTE
[2018-08-19 07:19] LABS: CALCIUM, SERUM 8.6 mg/dL (8.5-10.1); CREATININE 6.7 mg/dL (0.6-1.3); MAGNESIUM 2.5 mg/dL (1.8-2.4); PHOSPHORUS 6.7 mg/dL (2.5-4.9); POTASSIUM 5.3 mmol/L (3.5-5.1)
[2018-08-19] MEDS: BLOOD SUGAR DIAGNOSTIC 1 EACH STRIP IN SCH ×2 (07:36→11:25)
[2018-08-19] MEDS: FLUTICASONE PROPIONATE 16 GM BOTTLE NS SCH (07:38)
[2018-08-19] MEDS: SULFACETAMIDE 10% OPHTH 15 ML BOTTLE RIGHTEYE SCH ×2 (07:38→11:25)
[2018-08-19] MEDS: FLUTICASONE/VILANTEROL 1 EACH BLST.W.DEV IH SCH (07:39)
[2018-08-19 08:00] VITALS: BP 140/65
[2018-08-19] MEDS: INSULIN LISPRO/ASPART 100 UNIT/ML CARTRIDGE SQ SCH ×2 (08:00→13:15)
--- NOTE | 2018-08-19 08:00 | NUR ---
RN NOTE DIALYSIS ARRIVED, MEDICATION HELD TO DO TREATMENT. PATIENT TOPICAL MEDICATIONS GIVEN, NOSE AND EYE DROPS. PATIETN NOT COMPLAINING OF PAIN, PATIENT VITALS WNL. CONT TO CARYL.
[2018-08-19] MEDS: SEVELAMER CARBONATE 800 MG TABLET PO SCH ×2 (08:10→11:25)
[2018-08-19] MEDS: DOCUSATE SODIUM 100 MG CAPSULE PO SCH (08:12)
[2018-08-19] MEDS: METOPROLOL TARTRATE 25 MG TABLET PO SCH (08:12)
[2018-08-19] MEDS: BUMETANIDE (1 MG) 1 MG TABLET PO SCH (08:12)
[2018-08-19] MEDS: ASPIRIN 81 MG TAB.CHEW PO SCH (08:12)
[2018-08-19] MEDS: ALLOPURINOL 100 MG TABLET PO SCH (08:13)
[2018-08-19] MEDS: AMMONIUM LACTATE 227 GM BOTTLE TP SCH (08:13)
[2018-08-19] MEDS: NYSTATIN TOP POWDER 15 GM BOTTLE TP SCH (08:13)
[2018-08-19] MEDS: DAKINS QUARTER STRENGTH (0.125%) 480 ML BOTTLE TOP SCH (08:13)
[2018-08-19] MEDS: NEOMY SULF/BACITRAC ZN/POLY 15 GM TUBE TP SCH (08:13)
[2018-08-19] MEDS: CLOPIDOGREL BISULFATE 75 MG TABLET PO SCH (08:13)
[2018-08-19] MEDS: NYSTATIN/TRIAMCIN CREAM 15 GM TUBE TP SCH (08:13)
[2018-08-19] MEDS: VIT B CMPLX 3/FA/VIT C/BIOTIN 1 TAB TABLET PO SCH (08:14)
[2018-08-19 16:00] VITALS: BP 125/46
--- NOTE | 2018-08-19 16:52 | NUR ---
AIR DUCT MECHANIC NOTE PATIENT STABLE VITALS WNL. DOCTOR PUT IN ORDER FOR DISCHARGE. PATIENTS DRESSINGS CHANGED, KEPT CLDEAN AND DRY. HALFWAY AWARE OF TRANSFER, NURSE CALLED AND GAVE REPORT OT CHARGE NURSE. TRANSPORT HAS ARRIVED, PATIENTS IV D/C AND TRANSPORT WILL ASSIST OT TAKE PATIENT TO NURSING FACILITY. BELONGINGS LIST SIGNED, VACULAR SURGEON FROM OUTSIDE FACILYT SAW THE PATIETN TODAY.
== END 2018-08-19 17:15 | DRG 73 ==
LOC: ER 14:47 → TELE1 15:33 → MEDSG1 08-12 08:44
PROVIDERS: ADMIT Hospitalist; ATTEND Nurse Practitioner Acute Care
PROC: 5A1D70Z Performance of Urinary Filtration, Intermittent, Less than 6 Hours Per Day (ICD-10-PCS; principal; 2018-08-12)
PROC: 5A1D70Z Performance of Urinary Filtration, Intermittent, Less than 6 Hours Per Day (ICD-10-PCS; 2018-08-13)
PROC: 5A1D70Z Performance of Urinary Filtration, Intermittent, Less than 6 Hours Per Day (ICD-10-PCS; 2018-08-14)
PROC: 5A1D70Z Performance of Urinary Filtration, Intermittent, Less than 6 Hours Per Day (ICD-10-PCS; 2018-08-17)
PROC: 5A1D70Z Performance of Urinary Filtration, Intermittent, Less than 6 Hours Per Day (ICD-10-PCS; 2018-08-19)
DX: G90.8 Other disorders of autonomic nervous system (principal); N18.6 End stage renal disease; I13.2 Hypertensive heart and chronic kidney disease with heart failure and with stage 5 chronic kidney disease, or end stage renal disease; E44.1 Mild protein-calorie malnutrition; I50.32 Chronic diastolic (congestive) heart failure; D68.59 Other primary thrombophilia; Z68.42 Body mass index [BMI] 45.0-49.9, adult; E87.1 Hypo-osmolality and hyponatremia; L97.829 Non-pressure chronic ulcer of other part of left lower leg with unspecified severity; R53.1 Weakness; Z99.2 Dependence on renal dialysis; W18.30XA Fall on same level, unspecified, initial encounter; E11.22 Type 2 diabetes mellitus with diabetic chronic kidney disease; E87.5 Hyperkalemia; I87.2 Venous insufficiency (chronic) (peripheral); S61.512A Laceration without foreign body of left wrist, initial encounter; S50.02XA Contusion of left elbow, initial encounter; E11.42 Type 2 diabetes mellitus with diabetic polyneuropathy; S50.312A Abrasion of left elbow, initial encounter; L30.4 Erythema intertrigo; E11.51 Type 2 diabetes mellitus with diabetic peripheral angiopathy without gangrene; L85.3 Xerosis cutis; D63.8 Anemia in other chronic diseases classified elsewhere; D72.829 Elevated white blood cell count, unspecified; E78.5 Hyperlipidemia, unspecified; Z79.4 Long term (current) use of insulin; Z95.2 Presence of prosthetic heart valve; E66.01 Morbid (severe) obesity due to excess calories; N40.0 Benign prostatic hyperplasia without lower urinary tract symptoms; I87.8 Other specified disorders of veins; Z79.82 Long term (current) use of aspirin; E11.65 Type 2 diabetes mellitus with hyperglycemia; B35.6 Tinea cruris; S51.012A Laceration without foreign body of left elbow, initial encounter; M79.652 Pain in left thigh; S80.11XA Contusion of right lower leg, initial encounter; Y93.9 Activity, unspecified; W19.XXXA Unspecified fall, initial encounter; Y92.009 Unspecified place in unspecified non-institutional (private) residence as the place of occurrence of the external cause
CPT/HCPCS: 36415; 70450-TC; 71045-TC; 75635-TC; 80048-TC; 80053-TC; 80061-TC; 81000-TC; 82728-TC; 82962-TC; 83540-TC; 83735-TC; 84100-TC; 84443-TC; 84484-TC; 85025-TC; 85730-TC; 87040-TC; 87081-TC; 87086-TC; 90935-TC; 93307-TC; 93971-TC; A6253; A6402; A6403; G0378; J1815; J2405; J7030; J7050; Q9967